=== PATIENT | female | born 1965 | race Caucasian/White ===

== ENCOUNTER 2016-08-11 09:34 | Day surgery (SDC) | payer BC ==
[~2016-08-11] VITALS: Ht 167.6 cm; Wt 80.7 kg
[~2016-08-11 09:34] MED LIST: AMRIX30 MG PO; CLONAZEPAM0.5 MG PO; GABAPENTIN300 MG PO; HYDROMORPHONE HC4 MG PO; IBUPROFEN800 MG PO; MAXALT MLT10 MG PO; MEDROL DOSEPAK4 MG PO; MOBIC7.5 MG PO; NEURONTIN600 MG PO; NORCO 5/3251 TABLET PO; NUCYNTA ER150 MG PO; NUCYNTA100 MG PO; NUCYNTA75 MG PO; OMEPRAZOLE20 MG PO; ONDANSETRON HCL8 MG PO; OPANA ER15 MG PO; OXYCONTIN20 MG PO; OXYMORPHONE HCL20 MG PO; PERCOCET 5/31 TABLET PO; REGLAN10 MG PO; SAPHRIS10 MG SL; SAVELLA50 MG PO; TOPAMAX100 MG PO; TOPAMAX50 MG PO; TRULICITY1.5 MG/0.5 SC; ZOFRAN ODT4 MG PO; [UNRECOGNIZED DRUG - CODE] PO; zanaflex PO
[2016-08-13] MEDS ORDERED: SAVELLA100 MG PO (16:31)
== END 2016-08-11 11:00 | disposition home or self-care (01) ==
LOC: PAIN 09:34 → SDC 10:15 → PAIN 11:00
DX: M47.816 Spondylosis without myelopathy or radiculopathy, lumbar region (principal); F41.9 Anxiety disorder, unspecified; M43.16 Spondylolisthesis, lumbar region; M12.88 Other specific arthropathies, not elsewhere classified, other specified site; M96.1 Postlaminectomy syndrome, not elsewhere classified; R51 Headache; M79.7 Fibromyalgia; F32.9 Major depressive disorder, single episode, unspecified; K21.9 Gastro-esophageal reflux disease without esophagitis; Z87.891 Personal history of nicotine dependence; Z88.1 Allergy status to other antibiotic agents
CPT/HCPCS: J1030; J2250; J3010; S0020

== ENCOUNTER 2016-08-18 10:19 | Day surgery (SDC) | payer BC ==
[~2016-08-18] VITALS: Ht 167.6 cm; Wt 80.7 kg
[~2016-08-18 10:19] MED LIST changes: +SAVELLA100 MG PO
== END 2016-08-18 11:41 | disposition home or self-care (01) ==
LOC: PAIN 10:19 → SDC 10:45 → PAIN 10:45
DX: M47.816 Spondylosis without myelopathy or radiculopathy, lumbar region (principal); F41.9 Anxiety disorder, unspecified; M43.16 Spondylolisthesis, lumbar region; M96.1 Postlaminectomy syndrome, not elsewhere classified; R51 Headache; M79.7 Fibromyalgia; F32.9 Major depressive disorder, single episode, unspecified; K21.9 Gastro-esophageal reflux disease without esophagitis; Z87.891 Personal history of nicotine dependence; Z88.1 Allergy status to other antibiotic agents
CPT/HCPCS: J1030; J2250; J3010; S0020

== ENCOUNTER 2017-01-07 07:48 | Day surgery (SDC) | payer BC ==
[~2017-01-07] VITALS: Ht 167.6 cm; Wt 80.7 kg
[~2017-01-07 07:48] MED LIST changes: +DEXILANT60 MG PO; +NUCYNTA ER200 MG PO
== END 2017-01-07 09:42 | disposition home or self-care (01) ==
LOC: PAIN 07:48 → SDC 08:30 → PAIN 09:42
DX: M47.816 Spondylosis without myelopathy or radiculopathy, lumbar region (principal); M54.5 Low back pain; G89.29 Other chronic pain; M43.16 Spondylolisthesis, lumbar region; M96.1 Postlaminectomy syndrome, not elsewhere classified; M79.7 Fibromyalgia; M54.2 Cervicalgia; K21.9 Gastro-esophageal reflux disease without esophagitis; Z79.891 Long term (current) use of opiate analgesic; Z87.891 Personal history of nicotine dependence
CPT/HCPCS: J1030; J2250; J3010; S0020

== ENCOUNTER 2017-06-17 08:41 | Day surgery (SDC) | payer BC, OTHER ==
[~2017-06-17] VITALS: Ht 167.6 cm; Wt 82.5 kg
[~2017-06-17 08:41] MED LIST changes: +DILAUDID4 MG PO; +MORPHINE SULFAT60 M1 PO; +ZANAFLEX4 MG PO
== END 2017-06-17 09:58 | disposition home or self-care (01) ==
LOC: PAIN 08:41 → SDC 09:15 → PAIN 09:15
DX: M47.812 Spondylosis without myelopathy or radiculopathy, cervical region (principal); M50.31 Other cervical disc degeneration, high cervical region; G89.29 Other chronic pain; M96.1 Postlaminectomy syndrome, not elsewhere classified; M47.816 Spondylosis without myelopathy or radiculopathy, lumbar region; M43.16 Spondylolisthesis, lumbar region; M79.7 Fibromyalgia; F41.8 Other specified anxiety disorders; K21.9 Gastro-esophageal reflux disease without esophagitis; Z79.891 Long term (current) use of opiate analgesic; Z87.891 Personal history of nicotine dependence
CPT/HCPCS: J1030; J2250; J3010; S0020

== ENCOUNTER 2017-09-13 18:21 | Emergency (ER) | payer BC, OTHER ==
[~2017-09-13] VITALS: Ht 170.2 cm; Wt 81.3 kg
[2017-09-13 19:14] LABS: HEMATOCRIT 45.3 % (36.0-46.0); HEMOGLOBIN 14.7 G/DL (11.9-15.5); MCH 28.5 PG (29.0-34.0); MCHC 32.5 G/DL (30.0-36.0); PLATELET COUNT 414 K/uL (156-360); RBC DIS.WIDTH-CV 13.1 % (11.8-14.6); RBC DIS.WIDTH-SD 42.2 % (39-53); RED BLOOD COUNT 5.15 M/uL (3.80-5.20); WHITE BLOOD COUNT 10.6 K/uL (4.1-10.2)
[2017-09-13 19:18] LABS: APPEARANCE SL.HAZY ((CLEAR)); BILIRUBIN NEGATIVE; BLOOD SMALL; COLOR AMBER ((YELLOW)); GLUCOSE (STRIP) NEGATIVE; KETONES 80; LEUKOCYTES MODERATE; NITRITE NEGATIVE; PROTEIN (STRIP) 100; SPECIFIC GRAVITY 1.026 (1.000-1.030)
[2017-09-13 19:23] LABS: ALBUMIN 4.9 g/dL (3.2-4.8); CHLORIDE 105 mEq/L (99-109); POTASSIUM 3.7 mEq/L (3.7-5.4); SODIUM 140 mEq/L (136-147)
[2017-09-13 19:25] LABS: GLUCOSE 129 mg/dL (70-99)
[2017-09-13 19:27] LABS: TOTAL BILIRUBIN 1.1 mg/dL (0.0-1.0)
[2017-09-13 19:29] LABS: ALKALINE PHOSPHATASE 144 IU/L (3-129); CREATININE 0.9 mg/dL (0.6-1.3); GFR ESTIMATE (CALCULATED) > 59 mL/min/
[2017-09-13 19:30] LABS: UREA NITROGEN (BUN) 16 mg/dL (9-23)
[2017-09-13 19:31] LABS: AST (GOT) 28 IU/L (2-34)
[2017-09-13 19:32] LABS: ALT (GPT) 45 IU/L (3-49)
[2017-09-13 19:38] LABS: QUANTITATIVE HCG < 4.0 MIU/ML
[2017-09-13 19:42] LABS: EPITHELIAL CELLS 1+ /HPF; MUCUS 1+ /LPF; RED BLOOD CELLS 0-5 /HPF (0-5)
[2017-09-13 19:43] LABS: BACTERIA 1+ /HPF; UCUL ADDED? YES
[2017-09-13 21:52] LABS: LIPASE 28 U/L (1.0-51.0)
[2017-09-13 23:47] VITALS: BP 148/84
== END 2017-09-13 23:48 | disposition home or self-care (01) ==
LOC: EME 18:21
DX: K52.9 Noninfective gastroenteritis and colitis, unspecified (principal); F32.9 Major depressive disorder, single episode, unspecified; F41.9 Anxiety disorder, unspecified; K21.9 Gastro-esophageal reflux disease without esophagitis; Z88.1 Allergy status to other antibiotic agents; Z87.891 Personal history of nicotine dependence
CPT/HCPCS: 74177; 80053; 81003; 83690; 84702; 85027; 87086; 99281; 99285; J2405; J3010; J7040